=== PATIENT | female | born 1985 | race Caucasian/White ===

== ENCOUNTER 2024-08-20 20:41 | Emergency (ER) | payer OTHER ==
[~2024-08-20] VITALS: Ht 167.6 cm; Wt 92.0 kg
[2024-08-20 20:42] VITALS: O2SAT 98
[2024-08-20 22:18] LABS: BASOPHILS % 0.3 % (0.0-2.0); EOSINOPHILS % 0.6 % (0.0-5.0); HEMATOCRIT. 42.1 % (36.0-48.0); HEMOGLOBIN. 14.1 g/dL (12.0-16.0); LYMPHOCYTES % 16.7 % (20.0-50.0); MEAN CORPUSCULAR HEMOGLOBIN 30.9 pg (28.0-32.0); MEAN CORPUSCULAR HGB CONC 33.6 g/dL (31.0-37.0); MEAN CORPUSCULAR VOLUME 92.1 fL (81.0-99.0); MEAN PLATELET VOLUME 8.2 fl (7.4-10.4); MONOCYTES % 5.6 % (2.0-8.0); NEUTROPHILS % 76.8 % (40.0-76.0); PLATELET 301 x1000/uL (130-400); RED BLOOD CELL COUNT 4.57 mill/uL (4.2-5.4); RED CELL DISTRIBUTION WIDTH 12.8 % (11.6-14.6); WHITE BLOOD COUNT 13.2 x1000/uL (4.5-11.0)
[2024-08-20 22:26] LABS: CHLORIDE 106 mEq/L (98-107); POTASSIUM 3.5 mEq/L (3.5-5.1); SODIUM 139 mEq/L (136-145)
[2024-08-20 22:27] LABS: CALCIUM 9.3 mg/dL (8.7-10.4); CARBON DIOXIDE 24 mEq/L (21-32)
[2024-08-20 22:29] LABS: PROTHROMBIN TIME 10.3 sec (9.6-11.0)
[2024-08-20 22:32] LABS: CREATININE 0.7 mg/dL (0.6-1.0); GLUCOSE 110 mg/dL (70-105); TROPONIN I HIGH SENSITIVITY 11 ng/L (3.0-34); UREA NITROGEN BLOOD 11 mg/dL (9-23)
[2024-08-20 22:34] LABS: ALANINE AMINOTRANSFERASE 48 IU/L (10-49); ALBUMIN 4.4 g/dL (3.2-4.8); ASPARTATE AMINOTRANSFERASE 34 IU/L (<34); BILIRUBIN TOTAL 0.2 mg/dL (0.1-1.0); PROTEIN TOTAL 7.7 g/dL (6.0-8.3)
[2024-08-20 22:35] LABS: BILIRUBIN DIRECT < 0.1 mg/dL (<=3.0)
[2024-08-20 22:40] LABS: HCG SCREEN NEGATIVE
[2024-08-20] MEDS: IOHEXOL-300 100 ML BOTTLE ONE (23:46)
[2024-08-21] MEDS ORDERED: IBUP-2029 MT (01:15)
[2024-08-21 01:42] VITALS: BP 124/77; PULSE 83; RESP 16; TEMP 37.1; O2SAT 100
== END 2024-08-21 01:42 | disposition home or self-care (01) ==
LOC: ER 20:41
DX: S20.219A Contusion of unspecified front wall of thorax, initial encounter (principal); S39.91XA Unspecified injury of abdomen, initial encounter; V43.62XA Car passenger injured in collision with other type car in traffic accident, initial encounter; M54.2 Cervicalgia; Z86.39 Personal history of other endocrine, nutritional and metabolic disease; Y93.89 Activity, other specified; Y92.410 Unspecified street and highway as the place of occurrence of the external cause; Y99.8 Other external cause status
CPT/HCPCS: 99291; 70450; 80076; 80048; 84703; 83690; 85025; 85610; 84484; 36415; 73100; 73120; 71260; 72125; 74177; Q9967